=== PATIENT | female | born 1990 | race Caucasian/White ===

== ENCOUNTER 2018-04-27 10:36 | Emergency (ER) | payer OTHER ==
[~2018-04-27] VITALS: Ht 170.2 cm; Wt 61.2 kg
[2018-04-27] MEDS ORDERED: MAGIC MOUTHWASH SWISH&SPIT (11:24)
[2018-04-27] MEDS ORDERED: PENICILLIN V P500 MG PO (11:24)
[2018-04-27 11:48] VITALS: BP 134/81
== END 2018-04-27 11:40 | disposition home or self-care (01) ==
LOC: ER 10:36
DX: K05.10 Chronic gingivitis, plaque induced (principal); F17.210 Nicotine dependence, cigarettes, uncomplicated; Z88.5 Allergy status to narcotic agent